=== PATIENT | male | born 1995 | race Two or more races ===

== ENCOUNTER 2019-03-02 20:16 | Emergency (ER) | payer MEDICAID, OTHER ==
[~2019-03-02] VITALS: Ht 188 cm; Wt 104.3 kg
[2019-03-02 20:25] VITALS: BP 115/72
--- NOTE | 2019-03-02 20:57 | NUR ---
Patient discharged to home in stable condition. Written and verbal after care instructions given. Patient verbalizes understanding of instruction. Pt ambulatory with a steady gait
== END 2019-03-02 21:12 | disposition home or self-care (01) ==
LOC: ER 20:18
DX: T65.891A Toxic effect of other specified substances, accidental (unintentional), initial encounter (principal); T23.502A Corrosion of first degree of left hand, unspecified site, initial encounter; R42 Dizziness and giddiness; Y93.89 Activity, other specified; Y92.89 Other specified places as the place of occurrence of the external cause; Y99.0 Civilian activity done for income or pay

== ENCOUNTER 2021-02-21 18:17 | Emergency (ER) | payer OTHER ==
[~2021-02-21] VITALS: Ht 188 cm; Wt 136.1 kg
[2021-02-21 20:45] VITALS: BP 147/89
--- NOTE | 2021-02-21 21:42 | NUR ---
Patient discharged to home in stable condition. Written and verbal after care instructions given. Patient verbalizes understanding of instruction. Pt ambulatory with a steady gait.
== END 2021-02-21 21:43 | disposition home or self-care (01) ==
LOC: ER 18:33
DX: R51.9 Headache, unspecified (principal)